=== PATIENT | female | born 1950 | race Two or more races ===

== ENCOUNTER 2017-10-04 12:30 | Outpatient (CLI) | payer OTHER | END 2017-10-04 12:34 | disposition home or self-care (01) | LOC: RAD 501 12:30 | DX: M79.645 Pain in left finger(s) (principal) ==

== ENCOUNTER 2017-10-24 12:06 | Outpatient (CLI) | payer OTHER | END 2017-10-24 14:48 | disposition home or self-care (01) | LOC: RAD 501 12:06 | DX: M25.532 Pain in left wrist (principal); M79.642 Pain in left hand; M54.5 Low back pain ==

== ENCOUNTER 2021-10-20 08:46 | Outpatient (CLI) | payer OTHER | END 2021-10-20 08:59 | disposition home or self-care (01) | LOC: RX STUDY 08:46 | PROVIDERS: ATTEND Internal Medicine Gastroenterology | DX: K30 Functional dyspepsia (principal) ==

== ENCOUNTER 2022-02-02 13:16 | Outpatient (CLI) | payer OTHER | END 2022-02-02 13:23 | disposition home or self-care (01) | LOC: RAD 13:16 | PROVIDERS: ATTEND Orthopaedic Surgery | DX: M25.532 Pain in left wrist (principal) ==

== ENCOUNTER 2022-02-03 11:35 | Outpatient (CLI) | payer OTHER | END 2022-02-03 11:44 | disposition home or self-care (01) | LOC: TOM 11:35 | PROVIDERS: ATTEND Orthopaedic Surgery | DX: S52.572A Other intraarticular fracture of lower end of left radius, initial encounter for closed fracture (principal) ==

== ENCOUNTER 2022-02-04 06:22 | Day surgery (SDC) | payer OTHER ==
[~2022-02-04] VITALS: Ht 160 cm; Wt 60.8 kg
== END 2022-02-04 11:55 | disposition home or self-care (01) ==
LOC: CIR.AMB 06:22
PROVIDERS: ATTEND Orthopaedic Surgery
DX: S52.572A Other intraarticular fracture of lower end of left radius, initial encounter for closed fracture (principal); Z88.0 Allergy status to penicillin; Z91.013 Allergy to seafood; M62.432 Contracture of muscle, left forearm; Z20.822 Contact with and (suspected) exposure to COVID-19
CPT/HCPCS: 20902; 25280; 25609; L8699

== ENCOUNTER 2022-03-10 10:21 | Outpatient (CLI) | payer OTHER | END 2022-03-10 10:23 | disposition home or self-care (01) | LOC: RAD 10:21 | PROVIDERS: ATTEND Orthopaedic Surgery | DX: M25.532 Pain in left wrist (principal) ==

== ENCOUNTER 2022-04-07 11:20 | Outpatient (CLI) | payer OTHER | END 2022-04-07 11:22 | disposition home or self-care (01) | LOC: RAD 11:20 | PROVIDERS: ATTEND Orthopaedic Surgery | DX: S52.572D Other intraarticular fracture of lower end of left radius, subsequent encounter for closed fracture with routine healing (principal); T84.84XD Pain due to internal orthopedic prosthetic devices, implants and grafts, subsequent encounter ==

== ENCOUNTER 2022-04-26 09:30 | Outpatient (CLI) | payer OTHER | END 2022-04-26 09:31 | disposition home or self-care (01) | LOC: LAB 09:30 | PROVIDERS: ATTEND Orthopaedic Surgery | DX: D64.9 Anemia, unspecified (principal); D68.8 Other specified coagulation defects; N39.0 Urinary tract infection, site not specified; E11.9 Type 2 diabetes mellitus without complications; I10 Essential (primary) hypertension; Z76.89 Persons encountering health services in other specified circumstances ==